=== PATIENT | male | born 1955 | race Caucasian/White ===

== ENCOUNTER 2021-02-19 10:35 | Day surgery (SDC) | payer MEDICARE, MEDICAID ==
[~2021-02-19] VITALS: Ht 180.3 cm; Wt 70.8 kg
[~2021-02-19 10:35] MED LIST: ALBU18HF2 INH; DIPH-1055 PO; GABA300S PO; HYDR-3968 PO; LOP25T PO; MORP-92 PO; WARF1TAB83 PO
[2021-02-19 11:17] VITALS: BP 115/80
[2021-02-19] MEDS ORDERED: fentaNYL/PF 50MCG/1 ML 2ML syringe IV ONE (11:20)
[2021-02-19] MEDS ORDERED: normal saline 1000ml 1,000 ML IV SCH (11:20)
[2021-02-19] MEDS ORDERED: MIDAZolam 1mg/ml 10ml vial IV ONE (11:20)
[2021-02-19 11:51] LABS: BASOPHILS % (AUTO) 0.5 % (0-1); EOSINOPHILS # (AUTO) 0.3 X10'3 (0-0.9); EOSINOPHILS % (AUTO) 5.8 % (0-6); HEMATOCRIT 42.8 % (42.0-52.0); HEMOGLOBIN 13.9 g/dl (14.0-17.9); LYMPHOCYTES # (AUTO) 0.6 X10'3 (1.1-4.8); LYMPHOCYTES % (AUTO) 10.5 % (21-51); MEAN CORPUSCULAR HEMOGLOBIN 28.3 PG (27.0-31.0); MEAN CORPUSCULAR HGB CONC 32.5 g/dL (33.0-36.5); MEAN CORPUSCULAR VOLUME 87.1 FL (78-98); MEAN PLATELET VOLUME 8.5 FL (7.4-10.4); MONOCYTES # (AUTO) 0.6 X10'3 (0-0.9); MONOCYTES % (AUTO) 9.6 % (2-12); NEUTROPHILS # (AUTO) 4.3 X10'3 (1.8-7.7); NEUTROPHILS % (AUTO) 73.6 % (42-75); PLATELET COUNT 176 X10'3 (140-440); RED BLOOD COUNT 4.91 X10'6 (4.70-6.10); RED CELL DISTRIBUTION WIDTH 16.3 % (11.5-14.5); WHITE BLOOD COUNT 5.8 X10'3 (4.5-11.0)
[2021-02-19 12:01] LABS: ALBUMIN 3.6 G/DL (3.4-5.0); ANION GAP 10 (8-16); BLOOD UREA NITROGEN 10 MG/DL (7-18); BUN/CREATININE RATIO 11.2 (5.4-32.0); CALCIUM 8.3 MG/DL (8.5-10.1); CHLORIDE 110 MMOL/L (99-107); CREATININE 0.89 MG/DL (0.60-1.10); GLUCOSE 100 MG/DL (70-104); POTASSIUM 4.2 MMOL/L (3.5-5.1); SODIUM 145 MMOL/L (135-145); TOTAL CARBON DIOXIDE 24.6 MMOL/L (24-32); eGFR 86 ML/MIN
[2021-02-19] MEDS ORDERED: GABA300C (12:06)
[2021-02-19] MEDS ORDERED: SOTA80TA73 PO (12:06)
[2021-02-19] MEDS ORDERED: DOCU-345 PO (12:06)
[2021-02-19] MEDS ORDERED: WARF6TAB49 PO (12:09)
[2021-02-19] MEDS ORDERED: ATOR40TA PO (12:09)
[2021-02-19] MEDS ORDERED: POLY17PO10 PO (12:09)
== END 2021-02-19 15:45 | disposition home or self-care (01) ==
LOC: SSTAY O 10:35
PROVIDERS: ATTEND Internal Medicine Interventional Cardiology
DX: I48.92 Unspecified atrial flutter (principal); Z53.8 Procedure and treatment not carried out for other reasons; J45.909 Unspecified asthma, uncomplicated; I10 Essential (primary) hypertension; I70.0 Atherosclerosis of aorta; G62.9 Polyneuropathy, unspecified; Z86.718 Personal history of other venous thrombosis and embolism; Z90.79 Acquired absence of other genital organ(s); Z88.5 Allergy status to narcotic agent; Z79.01 Long term (current) use of anticoagulants; Z79.899 Other long term (current) drug therapy
CPT/HCPCS: 36415; 80048; 85025; 85610; 93005; J2250; J3010; J7030